=== PATIENT | male | born 1995 | race Caucasian/White ===

== ENCOUNTER 2018-11-03 21:53 | Emergency (ER) | payer OTHER ==
[~2018-11-03] VITALS: Ht 195.6 cm; Wt 86.2 kg
[2018-11-03 22:14] VITALS: BP_SYST 139
[2018-11-04 05:12] VITALS: BP_SYST 139
== END 2018-11-04 05:12 | disposition home or self-care (01) ==
LOC: SED 21:53
DX: S93.601A Unspecified sprain of right foot, initial encounter (principal); W19.XXXA Unspecified fall, initial encounter; Y93.89 Activity, other specified; Y92.89 Other specified places as the place of occurrence of the external cause; Y99.8 Other external cause status
CPT/HCPCS: 99283